=== PATIENT | male | born 1985 | race Caucasian/White ===

== ENCOUNTER 2020-10-07 16:50 | Emergency (ER) | payer SELFPAY ==
[2020-10-07] MEDS ORDERED: morphine CARPU-JECT 4 MG/1 ML DISP.SYRIN IVPUSH ONE (18:07)
[2020-10-07] MEDS ORDERED: KETAMINE HCL 200 MG/20 ML VIAL IVPUSH ONE (18:07)
[2020-10-07] MEDS ORDERED: LIDOCAINE HCL 1%, 10 MG/ML (50 mL VIAL) INF ONE (18:08)
[2020-10-07] MEDS ORDERED: LIDOCAINE HCL 1%, 10 MG/ML (20ML VIAL) ONE (18:13)
[2020-10-07] MEDS ORDERED: KETAMINE HCL 200 MG/20 ML VIAL ONE (18:13)
[2020-10-07] MEDS ORDERED: MORPHINE SULFATE 2 MG/ML VIAL ONE (18:14)
[2020-10-07] MEDS ORDERED: morphine SULFATE 4 MG/ML VIAL ONE (18:14)
[2020-10-07 18:34] VITALS: PULSE 71; TEMP 97.8; BMI 25.7
[2020-10-07 18:39] VITALS: BP 142/90
== END 2020-10-07 19:16 | disposition home or self-care (01) ==
LOC: JER 16:50
PROC: 3E033NZ Introduction of Analgesics, Hypnotics, Sedatives into Peripheral Vein, Percutaneous Approach (ICD-10-PCS; principal; 2020-10-07)
PROC: 3E033GC Introduction of Other Therapeutic Substance into Peripheral Vein, Percutaneous Approach (ICD-10-PCS; 2020-10-07)
DX: S43.005A Unspecified dislocation of left shoulder joint, initial encounter (principal)
CPT/HCPCS: 73030-TC-LT-FY; 99285-25